=== PATIENT | female | born 1975 | race Caucasian/White ===

== ENCOUNTER 2018-06-27 14:29 | Emergency (ER) | payer MEDICAID ==
[~2018-06-27] VITALS: Ht 175.3 cm; Wt 67.0 kg
[~2018-06-27 14:29] MED LIST: CLIN-96 PO; CLIN150C8 PO; DIPH-423 PO; GENT5DRO4 EACHEYE; NO HOME MEDS
[2018-06-27 14:31] VITALS: BP 135/83
[2018-06-27] MEDS ORDERED: pilocarpine 2% ophthalmic drops 15ml LEFTEYE ONE (15:30)
== END 2018-06-27 16:00 | disposition home or self-care (01) ==
LOC: ER 14:29
DX: T15.82XA Foreign body in other and multiple parts of external eye, left eye, initial encounter (principal); J45.909 Unspecified asthma, uncomplicated; G89.29 Other chronic pain; F12.90 Cannabis use, unspecified, uncomplicated; F15.90 Other stimulant use, unspecified, uncomplicated; Z88.5 Allergy status to narcotic agent; Z88.8 Allergy status to other drugs, medicaments and biological substances; Z79.2 Long term (current) use of antibiotics; Z79.899 Other long term (current) drug therapy; Z56.0 Unemployment, unspecified; X58.XXXA Exposure to other specified factors, initial encounter; Y93.89 Activity, other specified; Y92.89 Other specified places as the place of occurrence of the external cause; Y99.8 Other external cause status
CPT/HCPCS: 65205; 99284

== ENCOUNTER 2018-08-21 19:34 | Emergency (ER) | payer MEDICAID ==
[~2018-08-21] VITALS: Ht 175.3 cm; Wt 77.2 kg
[2018-08-21 19:50] VITALS: BP 134/88
[2018-08-21] MEDS ORDERED: predniSONE 20 mg tablet PO ONE (22:00)
[2018-08-21] MEDS ORDERED: ipratropium/albuterol 3ml nebule NEB ONE (22:00)
[2018-08-21] MEDS ORDERED: AMOX-419 PO (22:13)
[2018-08-21] MEDS ORDERED: BENZ-38 PO (22:13)
[2018-08-21] MEDS ORDERED: PRED20TA PO (22:13)
[2018-08-21] MEDS ORDERED: ALBU6.7H INH (22:32)
== END 2018-08-21 22:39 | disposition home or self-care (01) ==
LOC: ER 19:35
DX: J20.9 Acute bronchitis, unspecified (principal); J45.909 Unspecified asthma, uncomplicated; G89.29 Other chronic pain; F12.90 Cannabis use, unspecified, uncomplicated; F15.90 Other stimulant use, unspecified, uncomplicated; Z87.891 Personal history of nicotine dependence; Z98.890 Other specified postprocedural states; Z88.5 Allergy status to narcotic agent; Z88.8 Allergy status to other drugs, medicaments and biological substances; Z79.2 Long term (current) use of antibiotics; Z79.899 Other long term (current) drug therapy
CPT/HCPCS: 71045; 94640; 94760; 99283; J7512

== ENCOUNTER 2018-12-11 07:31 | Emergency (ER) | payer MEDICAID ==
[~2018-12-11] VITALS: Ht 175.3 cm; Wt 65.0 kg
[~2018-12-11 07:31] MED LIST changes: +ALBU6.7H9 INH
[2018-12-11 08:49] LABS: BASOPHILS # (AUTO) 0.1 X10'3 (0-0.2); BASOPHILS % (AUTO) 1.2 % (0-1); EOSINOPHILS # (AUTO) 0.3 X10'3 (0-0.9); EOSINOPHILS % (AUTO) 4.5 % (0-6); HEMATOCRIT 42.9 % (35.0-45.0); HEMOGLOBIN 14.6 g/dl (12.0-16.0); LYMPHOCYTES # (AUTO) 1.3 X10'3 (1.1-4.8); LYMPHOCYTES % (AUTO) 21.9 % (21-51); MEAN CORPUSCULAR HEMOGLOBIN 30.1 PG (27.0-31.0); MEAN CORPUSCULAR HGB CONC 34.1 g/dL (33.0-36.5); MEAN CORPUSCULAR VOLUME 88.2 FL (78-98); MEAN PLATELET VOLUME 9.2 FL (7.4-10.4); MONOCYTES # (AUTO) 0.5 X10'3 (0-0.9); MONOCYTES % (AUTO) 8.9 % (2-12); NEUTROPHILS # (AUTO) 3.6 X10'3 (1.8-7.7); NEUTROPHILS % (AUTO) 63.5 % (42-75); PLATELET COUNT 156 X10'3 (140-440); RED BLOOD COUNT 4.87 X10'6 (4.20-5.60); RED CELL DISTRIBUTION WIDTH 12.4 % (11.5-14.5); WHITE BLOOD COUNT 5.7 X10'3 (4.5-11.0)
[2018-12-11 08:57] LABS: ALANINE AMINOTRANSFERASE 127 U/L (12-78); ALBUMIN 3.3 G/DL (3.4-5.0); ALBUMIN/GLOBULIN RATIO 0.7 (1.1-1.5); ALKALINE PHOSPHATASE 25 IU/L (46-116); ANION GAP 10 (8-16); ASPARTATE AMINO TRANSFERASE 74 U/L (10-37); BILIRUBIN,TOTAL 0.3 MG/DL (0.1-1.0); BLOOD UREA NITROGEN 10 MG/DL (7-18); BUN/CREATININE RATIO 10.9 (6.6-38.0); CALCIUM 8.7 MG/DL (8.5-10.1); CHLORIDE 107 MMOL/L (99-107); CREATININE 0.92 MG/DL (0.40-0.90); GLUCOSE 100 MG/DL (70-104); LIPASE 235 U/L (73-393); SODIUM 139 MMOL/L (135-145); TOTAL CARBON DIOXIDE 21.7 MMOL/L (24-32); TOTAL PROTEIN 7.8 G/DL (6.4-8.2); eGFR 67 ML/MIN
[2018-12-11 09:13] VITALS: BP 121/65
[2018-12-11 09:19] LABS: CLARITY,URINE SLIGHTLY CLOUDY (Clear); COLOR,URINE STRAW (Yellow); GLUCOSE, URINE NEGATIVE (Neg); KETONES,URINE NEGATIVE (Neg); LEUKOCYTE ESTERASE ,URINE TRACE (Neg); NITRITES, URINE NEGATIVE (Neg); OCCULT BLOOD,URINE NEGATIVE (Neg); PROTEIN,URINE NEGATIVE (Neg); UROBILINOGEN,URINE 0.2 E.U/dL (0.2-1.0)
[2018-12-11 09:20] LABS: URINE HCG NEGATIVE (NEG)
[2018-12-11 09:21] LABS: UA COLLECTION TYPE CLN CATCH MIDSTREAM
[2018-12-11 09:37] LABS: SQUAMOUS EPITHELIAL CELL,UR FEW /LPF (FEW)
[2018-12-11 09:38] LABS: MUCUS STRANDS FEW /LPF (Neg)
[2018-12-11 09:41] LABS: WBC,URINE 0-4 /HPF (0-4)
[2018-12-11 09:42] LABS: BACTERIA,URINE 1+ /HPF (Neg); CAL OXALATE CRYSTALS FEW /HPF (NEGATIVE); RBC,URINE 0-2 /HPF (0-2)
[2018-12-11 10:44] LABS: MONOTEST NEGATIVE (Neg)
== END 2018-12-11 10:37 | disposition home or self-care (01) ==
LOC: ER 07:31
DX: R10.12 Left upper quadrant pain (principal); J45.909 Unspecified asthma, uncomplicated; G89.29 Other chronic pain; M54.9 Dorsalgia, unspecified; F12.90 Cannabis use, unspecified, uncomplicated; F15.90 Other stimulant use, unspecified, uncomplicated; Z56.0 Unemployment, unspecified; Z88.6 Allergy status to analgesic agent; Z88.8 Allergy status to other drugs, medicaments and biological substances
CPT/HCPCS: 36415; 76700; 80053; 81001; 81025; 83690; 85025; 85610; 86308; 87088; 99284

== ENCOUNTER 2018-12-16 15:08 | Emergency (ER) | payer MEDICAID ==
[~2018-12-16] VITALS: Ht 175.3 cm; Wt 77.3 kg
[2018-12-16 15:49] LABS: BASOPHILS # (AUTO) 0.1 X10'3 (0-0.2); BASOPHILS % (AUTO) 0.9 % (0-1); EOSINOPHILS # (AUTO) 0.3 X10'3 (0-0.9); EOSINOPHILS % (AUTO) 3.8 % (0-6); HEMATOCRIT 42.9 % (35.0-45.0); HEMOGLOBIN 14.6 g/dl (12.0-16.0); LYMPHOCYTES # (AUTO) 1.6 X10'3 (1.1-4.8); LYMPHOCYTES % (AUTO) 21.8 % (21-51); MEAN CORPUSCULAR HEMOGLOBIN 30.2 PG (27.0-31.0); MEAN CORPUSCULAR HGB CONC 34.1 g/dL (33.0-36.5); MEAN CORPUSCULAR VOLUME 88.6 FL (78-98); MEAN PLATELET VOLUME 9.3 FL (7.4-10.4); MONOCYTES # (AUTO) 0.5 X10'3 (0-0.9); MONOCYTES % (AUTO) 7.4 % (2-12); NEUTROPHILS # (AUTO) 4.7 X10'3 (1.8-7.7); NEUTROPHILS % (AUTO) 66.1 % (42-75); PLATELET COUNT 178 X10'3 (140-440); RED BLOOD COUNT 4.85 X10'6 (4.20-5.60); RED CELL DISTRIBUTION WIDTH 12.8 % (11.5-14.5); WHITE BLOOD COUNT 7.1 X10'3 (4.5-11.0)
[2018-12-16 16:03] LABS: ALANINE AMINOTRANSFERASE 123 U/L (12-78); ALBUMIN 3.5 G/DL (3.4-5.0); ALBUMIN/GLOBULIN RATIO 0.7 (1.1-1.5); ALKALINE PHOSPHATASE 31 IU/L (46-116); ANION GAP 13 (8-16); ASPARTATE AMINO TRANSFERASE 64 U/L (10-37); BILIRUBIN,TOTAL 0.2 MG/DL (0.1-1.0); BLOOD UREA NITROGEN 10 MG/DL (7-18); BUN/CREATININE RATIO 11.6 (6.6-38.0); CALCIUM 8.7 MG/DL (8.5-10.1); CHLORIDE 105 MMOL/L (99-107); CREATININE 0.86 MG/DL (0.40-0.90); GLUCOSE 95 MG/DL (70-104); POTASSIUM 3.8 MMOL/L (3.5-5.1); SODIUM 139 MMOL/L (135-145); TOTAL CARBON DIOXIDE 21.1 MMOL/L (24-32); TOTAL PROTEIN 8.3 G/DL (6.4-8.2); eGFR 72 ML/MIN
[2018-12-16] MEDS ORDERED: ketorolac tromethamine 15mg/ml inj. IM ONE (16:05)
[2018-12-16] MEDS ORDERED: dicyclomine 10 MG capsule PO ONE (16:05)
[2018-12-16 16:44] LABS: LIPASE 197 U/L (73-393)
[2018-12-16 17:02] LABS: CLARITY,URINE SLIGHTLY CLOUDY (Clear); COLOR,URINE STRAW (Yellow); GLUCOSE, URINE NEGATIVE (Neg); KETONES,URINE NEGATIVE (Neg); LEUKOCYTE ESTERASE ,URINE NEGATIVE (Neg); NITRITES, URINE NEGATIVE (Neg); OCCULT BLOOD,URINE TRACE-INTACT (Neg); PH,URINE 6.5 (4.8-8.0); PROTEIN,URINE NEGATIVE (Neg); UROBILINOGEN,URINE 0.2 E.U/dL (0.2-1.0)
[2018-12-16 17:03] LABS: URINE HCG NEGATIVE (NEG)
[2018-12-16 17:06] LABS: UA COLLECTION TYPE CLN CATCH MIDSTREAM
[2018-12-16 17:10] LABS: RBC,URINE NONE SEEN /HPF (0-2); WBC,URINE 0-4 /HPF (0-4)
[2018-12-16 17:11] LABS: BACTERIA,URINE NONE SEEN /HPF (Neg); MUCUS STRANDS NONE SEEN /LPF (Neg); SQUAMOUS EPITHELIAL CELL,UR FEW /LPF (FEW)
[2018-12-16] MEDS ORDERED: DICY10CA88 PO (17:57)
[2018-12-16] MEDS ORDERED: FAMO-128 PO (17:57)
[2018-12-16 18:14] VITALS: BP 119/82
== END 2018-12-16 18:15 | disposition home or self-care (01) ==
LOC: ER 15:09
DX: R10.12 Left upper quadrant pain (principal); J45.909 Unspecified asthma, uncomplicated; G89.29 Other chronic pain; M54.9 Dorsalgia, unspecified; F12.90 Cannabis use, unspecified, uncomplicated; F15.90 Other stimulant use, unspecified, uncomplicated; Z88.6 Allergy status to analgesic agent; Z88.8 Allergy status to other drugs, medicaments and biological substances; Z87.891 Personal history of nicotine dependence; Z56.0 Unemployment, unspecified
CPT/HCPCS: 36415; 74176; 80053; 81001; 81025; 83690; 85025; 85610; 96372; 99284; J1885

== ENCOUNTER 2018-12-23 07:40 | Emergency (ER) | payer MEDICAID ==
[~2018-12-23] VITALS: Ht 175.3 cm; Wt 76.4 kg
[~2018-12-23 07:40] MED LIST changes: +CLIN-90 PO; -CLIN-96 PO; +DICY10CA88 PO; +FAMO-128 PO
[2018-12-23 08:58] LABS: ALANINE AMINOTRANSFERASE 163 U/L (12-78); ALBUMIN 3.7 G/DL (3.4-5.0); ALBUMIN/GLOBULIN RATIO 0.7 (1.1-1.5); ALKALINE PHOSPHATASE 29 IU/L (46-116); ANION GAP 11 (8-16); ASPARTATE AMINO TRANSFERASE 92 U/L (10-37); BILIRUBIN,TOTAL 0.4 MG/DL (0.1-1.0); BLOOD UREA NITROGEN 10 MG/DL (7-18); BUN/CREATININE RATIO 10.2 (6.6-38.0); CALCIUM 9.2 MG/DL (8.5-10.1); CHLORIDE 104 MMOL/L (99-107); CREATININE 0.98 MG/DL (0.40-0.90); GLUCOSE 82 MG/DL (70-104); LIPASE 163 U/L (73-393); POTASSIUM 3.6 MMOL/L (3.5-5.1); SODIUM 140 MMOL/L (135-145); TOTAL CARBON DIOXIDE 25.2 MMOL/L (24-32); TOTAL PROTEIN 9.1 G/DL (6.4-8.2); eGFR 62 ML/MIN
[2018-12-23 09:05] LABS: BASOPHILS % (AUTO) 0.6 % (0-1); EOSINOPHILS # (AUTO) 0.2 X10'3 (0-0.9); EOSINOPHILS % (AUTO) 3.6 % (0-6); HEMATOCRIT 45.9 % (35.0-45.0); HEMOGLOBIN 15.7 g/dl (12.0-16.0); LYMPHOCYTES # (AUTO) 1.1 X10'3 (1.1-4.8); LYMPHOCYTES % (AUTO) 21.1 % (21-51); MEAN CORPUSCULAR HEMOGLOBIN 30.2 PG (27.0-31.0); MEAN CORPUSCULAR HGB CONC 34.2 g/dL (33.0-36.5); MEAN CORPUSCULAR VOLUME 88.2 FL (78-98); MEAN PLATELET VOLUME 9.5 FL (7.4-10.4); MONOCYTES # (AUTO) 0.4 X10'3 (0-0.9); MONOCYTES % (AUTO) 8.2 % (2-12); NEUTROPHILS # (AUTO) 3.4 X10'3 (1.8-7.7); NEUTROPHILS % (AUTO) 66.5 % (42-75); PLATELET COUNT 140 X10'3 (140-440); RED CELL DISTRIBUTION WIDTH 12.4 % (11.5-14.5); WHITE BLOOD COUNT 5.1 X10'3 (4.5-11.0)
[2018-12-23 09:21] LABS: URINE HCG NEGATIVE (NEG)
[2018-12-23 09:24] LABS: CLARITY,URINE CLEAR (Clear); COLOR,URINE YELLOW (Yellow); GLUCOSE, URINE NEGATIVE (Neg); KETONES,URINE NEGATIVE (Neg); LEUKOCYTE ESTERASE ,URINE NEGATIVE (Neg); NITRITES, URINE NEGATIVE (Neg); OCCULT BLOOD,URINE TRACE-INTACT (Neg); PROTEIN,URINE NEGATIVE (Neg); UROBILINOGEN,URINE 0.2 E.U/dL (0.2-1.0)
[2018-12-23 09:26] LABS: UA COLLECTION TYPE CLN CATCH MIDSTREAM
[2018-12-23 09:31] LABS: SQUAMOUS EPITHELIAL CELL,UR FEW /LPF (FEW)
[2018-12-23 09:32] LABS: BACTERIA,URINE NONE SEEN /HPF (Neg); RBC,URINE 0-2 /HPF (0-2); WBC,URINE 0-4 /HPF (0-4)
[2018-12-23] MEDS ORDERED: normal saline 1000ML IV soln IVB ONE (09:35)
[2018-12-23] MEDS: diatr meglu/diatrizoate 30ml oral sol.-(3 dose) bottle PO SCH ×3 (09:58→11:38)
[2018-12-23] MEDS ORDERED: iohexol 300mg/ml 100ml inj. ONE (10:18)
--- NOTE | 2018-12-23 11:49 | NUR ---
LAST DOSE OF ORAL CONTREST GIVEN OUT TO CT
--- NOTE | 2018-12-23 11:58 | NUR ---
BACK FROM CT
[2018-12-23 13:07] VITALS: BP 125/75
== END 2018-12-23 13:10 | disposition home or self-care (01) ==
LOC: ER 07:40
DX: R10.12 Left upper quadrant pain (principal); R74.0 Nonspecific elevation of levels of transaminase and lactic acid dehydrogenase [LDH]; R16.1 Splenomegaly, not elsewhere classified; R10.11 Right upper quadrant pain; J45.909 Unspecified asthma, uncomplicated; F12.90 Cannabis use, unspecified, uncomplicated; F15.90 Other stimulant use, unspecified, uncomplicated; G89.29 Other chronic pain; Z86.19 Personal history of other infectious and parasitic diseases; Z98.890 Other specified postprocedural states; Z56.0 Unemployment, unspecified; Z88.5 Allergy status to narcotic agent; Z88.8 Allergy status to other drugs, medicaments and biological substances; Z79.899 Other long term (current) drug therapy
CPT/HCPCS: 36415; 74177; 80053; 81001; 81025; 83690; 85025; 99284; J7030; Q9963; Q9967

== ENCOUNTER 2019-07-04 15:47 | Emergency (ER) | payer MEDICAID ==
[~2019-07-04] VITALS: Ht 175.3 cm; Wt 79.0 kg
[~2019-07-04 15:47] MED LIST changes: -CLIN-90 PO; +CLIN-97 PO
[2019-07-04 15:56] VITALS: BP 138/87
[2019-07-04] MEDS ORDERED: PENI250T2 PO (16:35)
== END 2019-07-04 16:53 | disposition home or self-care (01) ==
LOC: ER 15:48
DX: R51 Headache (principal); K12.1 Other forms of stomatitis; R60.9 Edema, unspecified; J45.909 Unspecified asthma, uncomplicated; G89.29 Other chronic pain; F12.90 Cannabis use, unspecified, uncomplicated; F15.90 Other stimulant use, unspecified, uncomplicated; Z86.19 Personal history of other infectious and parasitic diseases; Z98.890 Other specified postprocedural states; Z56.0 Unemployment, unspecified; Z88.8 Allergy status to other drugs, medicaments and biological substances; Z79.2 Long term (current) use of antibiotics; Z79.899 Other long term (current) drug therapy
CPT/HCPCS: 99283

== ENCOUNTER 2021-08-10 12:57 | Emergency (ER) | payer MEDICAID ==
[~2021-08-10] VITALS: Ht 172.7 cm; Wt 90.9 kg
[2021-08-10 13:01] VITALS: BP 138/88
[2021-08-10 13:34] LABS: BASOPHILS # (AUTO) 0.1 X10'3 (0-0.2); BASOPHILS % (AUTO) 0.8 % (0-1); EOSINOPHILS # (AUTO) 0.2 X10'3 (0-0.9); EOSINOPHILS % (AUTO) 2.3 % (0-6); HEMATOCRIT 36.8 % (35.0-45.0); HEMOGLOBIN 12.2 g/dl (12.0-16.0); LYMPHOCYTES # (AUTO) 1.5 X10'3 (1.1-4.8); LYMPHOCYTES % (AUTO) 19.1 % (21-51); MEAN CORPUSCULAR HEMOGLOBIN 27.3 PG (27.0-31.0); MEAN CORPUSCULAR HGB CONC 33.2 g/dL (33.0-36.5); MEAN CORPUSCULAR VOLUME 82.2 FL (78-98); MEAN PLATELET VOLUME 8.7 FL (7.4-10.4); MONOCYTES # (AUTO) 0.6 X10'3 (0-0.9); MONOCYTES % (AUTO) 7.6 % (2-12); NEUTROPHILS # (AUTO) 5.4 X10'3 (1.8-7.7); NEUTROPHILS % (AUTO) 70.2 % (42-75); PLATELET COUNT 232 X10'3 (140-440); RED BLOOD COUNT 4.47 X10'6 (4.20-5.60); RED CELL DISTRIBUTION WIDTH 13.5 % (11.5-14.5); WHITE BLOOD COUNT 7.7 X10'3 (4.5-11.0)
[2021-08-10 13:35] LABS: CLARITY,URINE CLEAR (Clear); GLUCOSE, URINE NEGATIVE (Neg); KETONES,URINE NEGATIVE (Neg); LEUKOCYTE ESTERASE ,URINE NEGATIVE (Neg); NITRITES, URINE NEGATIVE (Neg); OCCULT BLOOD,URINE NEGATIVE (Neg); PROTEIN,URINE NEGATIVE (Neg); UROBILINOGEN,URINE 0.2 E.U/dL (0.2-1.0)
[2021-08-10 13:38] LABS: URINE HCG NEGATIVE (NEG)
[2021-08-10 13:49] LABS: ALANINE AMINOTRANSFERASE 9 U/L (12-78); ALBUMIN 3.7 G/DL (3.4-5.0); ALBUMIN/GLOBULIN RATIO 0.8 (1.1-1.5); ALKALINE PHOSPHATASE 24 IU/L (46-116); ANION GAP 10 (8-16); ASPARTATE AMINO TRANSFERASE 10 U/L (10-37); BILIRUBIN,TOTAL 0.2 MG/DL (0.1-1.0); BLOOD UREA NITROGEN 12 MG/DL (7-18); BUN/CREATININE RATIO 11.8 (6.6-38.0); CALCIUM 9.1 MG/DL (8.5-10.1); CHLORIDE 105 MMOL/L (99-107); CREATININE 1.02 MG/DL (0.40-0.90); GLUCOSE 91 MG/DL (70-104); LIPASE 116 U/L (73-393); POTASSIUM 4.1 MMOL/L (3.5-5.1); SODIUM 137 MMOL/L (135-145); TOTAL CARBON DIOXIDE 21.8 MMOL/L (24-32); TOTAL PROTEIN 8.1 G/DL (6.4-8.2); eGFR 59 ML/MIN
[2021-08-10 14:02] LABS: COLOR,URINE STRAW (Yellow); UA COLLECTION TYPE CLN CATCH MIDSTREAM
[2021-08-10] MEDS ORDERED: LIDOcaine Viscous 15ml cup MM PRN (14:20)
[2021-08-10] MEDS: mag hydrox/Alum hydrox/simeth 30ml oral suspension PO ONE ×2 (14:26→14:35)
== END 2021-08-10 15:02 | disposition home or self-care (01) ==
LOC: ER 12:58
DX: K59.00 Constipation, unspecified (principal); R10.10 Upper abdominal pain, unspecified; F12.10 Cannabis abuse, uncomplicated; F15.10 Other stimulant abuse, uncomplicated; M54.9 Dorsalgia, unspecified; J45.909 Unspecified asthma, uncomplicated; G89.29 Other chronic pain; Z88.8 Allergy status to other drugs, medicaments and biological substances; Z79.899 Other long term (current) drug therapy
CPT/HCPCS: 36415; 76700; 80053; 81003; 81025; 83690; 85025; 99284

== ENCOUNTER 2021-08-21 10:23 | Emergency (ER) | payer MEDICAID ==
[~2021-08-21] VITALS: Ht 172.7 cm; Wt 88.8 kg
[2021-08-21 10:49] VITALS: BP 138/88
[2021-08-21] MEDS ORDERED: BISA-155 PO (11:29)
[2021-08-21] MEDS ORDERED: NA P133E RC (11:29)
[2021-08-21] MEDS ORDERED: bisacodyl 5mg tablet.DR PO PRN (11:30)
[2021-08-21 11:44] LABS: CLARITY,URINE CLEAR (Clear); COLOR,URINE YELLOW (Yellow); GLUCOSE, URINE NEGATIVE (Neg); KETONES,URINE NEGATIVE (Neg); LEUKOCYTE ESTERASE ,URINE NEGATIVE (Neg); NITRITES, URINE NEGATIVE (Neg); OCCULT BLOOD,URINE NEGATIVE (Neg); PROTEIN,URINE NEGATIVE (Neg); UROBILINOGEN,URINE 0.2 E.U/dL (0.2-1.0)
[2021-08-21 11:48] LABS: UA COLLECTION TYPE CLN CATCH MIDSTREAM
[2021-08-21 11:59] LABS: ALANINE AMINOTRANSFERASE 12 U/L (12-78); ALBUMIN 3.7 G/DL (3.4-5.0); ALBUMIN/GLOBULIN RATIO 0.8 (1.1-1.5); ALKALINE PHOSPHATASE 24 IU/L (46-116); ANION GAP 8 (8-16); ASPARTATE AMINO TRANSFERASE 14 U/L (10-37); BILIRUBIN,TOTAL 0.3 MG/DL (0.1-1.0); BLOOD UREA NITROGEN 8 MG/DL (7-18); BUN/CREATININE RATIO 7.1 (6.6-38.0); CHLORIDE 104 MMOL/L (99-107); CREATININE 1.12 MG/DL (0.40-0.90); EOSINOPHILS # (AUTO) 0.1 X10'3 (0-0.9); GLUCOSE 101 MG/DL (70-104); LIPASE 102 U/L (73-393); POTASSIUM 4.1 MMOL/L (3.5-5.1); SODIUM 136 MMOL/L (135-145); TOTAL PROTEIN 8.3 G/DL (6.4-8.2); WHITE BLOOD COUNT 6.1 X10'3 (4.5-11.0); eGFR 53 ML/MIN
[2021-08-21 12:01] LABS: BASOPHILS % (AUTO) 0.6 % (0-1); EOSINOPHILS % (AUTO) 2.2 % (0-6); HEMATOCRIT 39.8 % (35.0-45.0); LYMPHOCYTES # (AUTO) 1.2 X10'3 (1.1-4.8); LYMPHOCYTES % (AUTO) 19.8 % (21-51); MEAN CORPUSCULAR HGB CONC 32.8 g/dL (33.0-36.5); MEAN CORPUSCULAR VOLUME 82.3 FL (78-98); MEAN PLATELET VOLUME 8.9 FL (7.4-10.4); MONOCYTES # (AUTO) 0.5 X10'3 (0-0.9); MONOCYTES % (AUTO) 7.8 % (2-12); NEUTROPHILS # (AUTO) 4.2 X10'3 (1.8-7.7); NEUTROPHILS % (AUTO) 69.6 % (42-75); PLATELET COUNT 207 X10'3 (140-440); RED BLOOD COUNT 4.83 X10'6 (4.20-5.60); RED CELL DISTRIBUTION WIDTH 13.6 % (11.5-14.5)
== END 2021-08-21 13:15 | disposition home or self-care (01) ==
LOC: ER 10:23
DX: K59.00 Constipation, unspecified (principal); J45.909 Unspecified asthma, uncomplicated; F12.10 Cannabis abuse, uncomplicated; F15.10 Other stimulant abuse, uncomplicated; Z56.0 Unemployment, unspecified; Z88.8 Allergy status to other drugs, medicaments and biological substances; Z79.899 Other long term (current) drug therapy; M54.9 Dorsalgia, unspecified; G89.29 Other chronic pain
CPT/HCPCS: 36415; 74018; 80053; 81003; 83690; 85025; 99284

== ENCOUNTER 2021-08-23 16:08 | Emergency (ER) | payer MEDICAID ==
[~2021-08-23] VITALS: Ht 172.7 cm; Wt 100.0 kg
[~2021-08-23 16:08] MED LIST changes: +BISA-155 PO; +NA P133E RC
[2021-08-23 18:01] LABS: CLARITY,URINE CLEAR (Clear); COLOR,URINE YELLOW (Yellow); GLUCOSE, URINE NEGATIVE (Neg); KETONES,URINE NEGATIVE (Neg); LEUKOCYTE ESTERASE ,URINE NEGATIVE (Neg); NITRITES, URINE NEGATIVE (Neg); OCCULT BLOOD,URINE NEGATIVE (Neg); PROTEIN,URINE NEGATIVE (Neg); UROBILINOGEN,URINE 0.2 E.U/dL (0.2-1.0)
[2021-08-23 18:02] LABS: URINE HCG NEGATIVE (NEG)
[2021-08-23 18:08] LABS: UA COLLECTION TYPE NON-SPECIFIED
[2021-08-23 18:15] LABS: ALANINE AMINOTRANSFERASE 10 U/L (12-78); ALBUMIN 3.5 G/DL (3.4-5.0); ALBUMIN/GLOBULIN RATIO 0.8 (1.1-1.5); ALKALINE PHOSPHATASE 24 IU/L (46-116); ANION GAP 9 (8-16); ASPARTATE AMINO TRANSFERASE 7 U/L (10-37); BILIRUBIN,TOTAL 0.1 MG/DL (0.1-1.0); BLOOD UREA NITROGEN 10 MG/DL (7-18); BUN/CREATININE RATIO 9.5 (6.6-38.0); CALCIUM 9.1 MG/DL (8.5-10.1); CHLORIDE 103 MMOL/L (99-107); CREATININE 1.05 MG/DL (0.40-0.90); GLUCOSE 96 MG/DL (70-104); LIPASE 101 U/L (73-393); MAGNESIUM 1.9 MG/DL (1.5-2.4); POTASSIUM 3.8 MMOL/L (3.5-5.1); SODIUM 136 MMOL/L (135-145); TOTAL CARBON DIOXIDE 24.2 MMOL/L (24-32); TOTAL PROTEIN 7.9 G/DL (6.4-8.2); eGFR 57 ML/MIN
[2021-08-23 18:23] LABS: BASOPHILS % (AUTO) 0.4 % (0-1); EOSINOPHILS # (AUTO) 0.2 X10'3 (0-0.9); EOSINOPHILS % (AUTO) 1.7 % (0-6); HEMATOCRIT 39.7 % (35.0-45.0); LYMPHOCYTES # (AUTO) 1.7 X10'3 (1.1-4.8); LYMPHOCYTES % (AUTO) 18.6 % (21-51); MEAN CORPUSCULAR HEMOGLOBIN 27.2 PG (27.0-31.0); MEAN CORPUSCULAR HGB CONC 32.9 g/dL (33.0-36.5); MEAN CORPUSCULAR VOLUME 82.7 FL (78-98); MEAN PLATELET VOLUME 8.9 FL (7.4-10.4); MONOCYTES # (AUTO) 0.6 X10'3 (0-0.9); MONOCYTES % (AUTO) 6.8 % (2-12); NEUTROPHILS # (AUTO) 6.6 X10'3 (1.8-7.7); NEUTROPHILS % (AUTO) 72.5 % (42-75); PLATELET COUNT 206 X10'3 (140-440); RED CELL DISTRIBUTION WIDTH 13.7 % (11.5-14.5); WHITE BLOOD COUNT 9.2 X10'3 (4.5-11.0)
[2021-08-23 18:48] VITALS: BP 123/87
[2021-08-23] MEDS ORDERED: normal saline 1000ml 1,000 ML IV ONE (19:35)
[2021-08-23] MEDS ORDERED: PEG 3350/Na sulf,bicarb,Cl/KCl oral sol 4 liter bottle PO STA (20:13)
[2021-08-23] MEDS ORDERED: metoclopramide 5 mg/ml inj IV ONE (20:15)
[2021-08-23] MEDS ORDERED: ondansetron/PF 4mg/2ml inj IV ONE (20:50)
[2021-08-23] MEDS ORDERED: CALC625T62 PO (22:17)
== END 2021-08-23 23:15 | disposition home or self-care (01) ==
LOC: ER 16:09
DX: K59.00 Constipation, unspecified (principal); R11.10 Vomiting, unspecified; J45.909 Unspecified asthma, uncomplicated; G89.29 Other chronic pain; Z86.19 Personal history of other infectious and parasitic diseases; Z98.890 Other specified postprocedural states; Z56.0 Unemployment, unspecified; Z72.89 Other problems related to lifestyle; Z88.8 Allergy status to other drugs, medicaments and biological substances; Z79.899 Other long term (current) drug therapy
CPT/HCPCS: 36415; 74176; 80053; 81003; 81025; 83690; 83735; 85025; 96361; 96374; 96375; 99284; J2405; J2765; J7030

== ENCOUNTER 2021-08-29 11:22 | Emergency (ER) | payer MEDICAID ==
[~2021-08-29] VITALS: Ht 172.7 cm; Wt 90.9 kg
[~2021-08-29 11:22] MED LIST changes: +CALC625T62 PO
[2021-08-29 12:14] VITALS: BP 131/77
[2021-08-29] MEDS ORDERED: GOLYS PO (12:48)
== END 2021-08-29 12:59 | disposition home or self-care (01) ==
LOC: ER 11:22
DX: K59.00 Constipation, unspecified (principal); G89.29 Other chronic pain; M54.9 Dorsalgia, unspecified; J45.909 Unspecified asthma, uncomplicated; Z88.8 Allergy status to other drugs, medicaments and biological substances; Z79.899 Other long term (current) drug therapy
CPT/HCPCS: 99283

== ENCOUNTER 2021-09-25 10:31 | Emergency (ER) | payer MEDICAID ==
[~2021-09-25] VITALS: Ht 172.7 cm; Wt 90.9 kg
[~2021-09-25 10:31] MED LIST changes: +GOLYS PO
[2021-09-25 10:42] VITALS: BP 134/70
[2021-09-25] MEDS ORDERED: ondansetron 4mg rapidly disintigrating tab PO ONE (15:15)
== END 2021-09-25 15:50 | disposition left against medical advice (07) ==
LOC: ER 10:31
DX: K59.00 Constipation, unspecified (principal); Z53.21 Procedure and treatment not carried out due to patient leaving prior to being seen by health care provider

== ENCOUNTER → 2021-10-14 | Day surgery (SDC) | payer MEDICAID ==
[2021-10-07 15:48] LABS: BASOPHILS % (AUTO) 0.6 % (0-1); EOSINOPHILS # (AUTO) 0.2 X10'3 (0-0.9); EOSINOPHILS % (AUTO) 2.3 % (0-6); LYMPHOCYTES # (AUTO) 1.4 X10'3 (1.1-4.8); MEAN CORPUSCULAR HGB CONC 33.5 g/dL (33.0-36.5); MEAN CORPUSCULAR VOLUME 83.6 FL (78-98); MEAN PLATELET VOLUME 8.9 FL (7.4-10.4); MONOCYTES # (AUTO) 0.4 X10'3 (0-0.9); MONOCYTES % (AUTO) 5.5 % (2-12); NEUTROPHILS # (AUTO) 5.9 X10'3 (1.8-7.7); NEUTROPHILS % (AUTO) 73.6 % (42-75); PRE OP HEMOGLOBIN 12.7 g/dL (12.0-16.0); PRE OP PLATELET COUNT 203 X10'3 (140-440); RED BLOOD COUNT 4.54 X10'6 (4.20-5.60); RED CELL DISTRIBUTION WIDTH 13.9 % (11.5-14.5)
[2021-10-07 16:01] LABS: ALBUMIN 3.6 G/DL (3.4-5.0); ALBUMIN/GLOBULIN RATIO 0.8 (1.1-1.5); ALKALINE PHOSPHATASE 27 IU/L (46-116); BLOOD UREA NITROGEN 9 MG/DL (7-18); BUN/CREATININE RATIO 8.4 (6.6-38.0); CALCIUM 8.9 MG/DL (8.5-10.1); CHLORIDE 106 MMOL/L (99-107); CREATININE 1.07 MG/DL (0.40-0.90); PRE OP ALT 17 U/L (30-65); PRE OP ANION GAP 9 (8-16); PRE OP AST 14 U/L (10-37); PRE OP BILIRUB, TOTAL 0.1 MG/DL (0.0-1.0); PRE OP GLUCOSE 96 MG/DL (70-104); PRE OP POTASSIUM 3.8 MMOL/L (3.4-5.1); PRE OP SODIUM 137 MMOL/L (135-145); TOTAL CARBON DIOXIDE 22.3 MMOL/L (24-32); TOTAL PROTEIN 8.1 G/DL (6.4-8.2); eGFR 55 ML/MIN
[~2021-10-14] VITALS: Ht 172.7 cm; Wt 81.2 kg
[~2021-10-14] MED LIST changes: -ALBU6.7H9 INH; +ARIP5TAB14 PO; -BISA-155 PO; +BUPIVAcaine/PF 2.5 mg/ml (0.25%) 30ml vial ONE; +BUPR100T13 PO; -CALC625T62 PO; -CLIN-97 PO; -CLIN150C8 PO; -DICY10CA88 PO; -DIPH-423 PO; -FAMO-128 PO; -GENT5DRO4 EACHEYE; -GOLYS PO; +LIDOcaine 0.5% (5mg/ml) 50ml vial ONE; +LORA10TA7 PO; -NA P133E RC; -NO HOME MEDS; +OMEP20CA16 PO; +ceFAZolin inj. 2,000 MG in dextrose 5%-water 100 ML IV ONE; +famotidine 20mg tablet PO ONE; +fentaNYL/PF 50MCG/1 ML 2ML syringe IV PRN; +hydrALAZINE 20mg/ml inj. IV PRN; +labetalol 20mg/4ml (5mg/ml) syringe IV PRN; +morphine 2 MG/ML inj. syringe IV PRN; +morphine 4 MG/ML inj SYRINge IV PRN; +ondansetron/PF 4mg/2ml inj IV PRN; +ringers solution, lacted 1,000 ML IV SCH; +ringers solution, lacted 500 ML IV SCH
[2021-10-14 07:45] VITALS: BP 124/90
[2021-10-14 10:47] VITALS: BP 117/74
--- NOTE | 2021-10-14 10:47 | NUR ---
Received from OR via [facility], accompanied by Anesthesiologist and report given by TAD Anesthesiologist. PATIENT WAKING UP, DENIES PAIN, V/S WNL, 20G TO RUE, LEFT FINGER DRESSING C/D/I. ICE AND ELEVATED LUE. Addendum: 10/14/21 at 1057 by Tino Patten RN Amended: Links added.
[2021-10-14 10:50] VITALS: BP 112/73
[2021-10-14 11:00] VITALS: BP 132/79
[2021-10-14 11:10] VITALS: BP 119/81
[2021-10-14 11:20] VITALS: BP 133/84
--- NOTE | 2021-10-14 11:27 | NUR ---
ALL DISCHARGE CRITERIA HAS BEEN MET. VSS, PAIN AT A TOLERABLE LEVEL, ABLE TO SAFELY AMBULATE AND TRANSFER SELF. IV TAKEN OUT WITHOUT ANY COMPLICATIONS. ALL DISCHARGE INSTRUCTIONS COVERED WITH PATIENT AND ALL QUESTIONS ANSWERED. PATIENT TAKEN OUT VIA WHEELCHAIR TO PERSONAL VEHICLE WHERE FAMILY DROVE PATIENT HOME. Addendum: 10/14/21 at 1130 by Tino Patten RN Amended: Links added.
== END | disposition home or self-care (01) ==
LOC: PAS 07:22
PROVIDERS: ATTEND Orthopaedic Surgery Hand Surgery
DX: S68.113A Complete traumatic metacarpophalangeal amputation of left middle finger, initial encounter (principal); K21.9 Gastro-esophageal reflux disease without esophagitis; G80.8 Other cerebral palsy; F20.89 Other schizophrenia; X58.XXXA Exposure to other specified factors, initial encounter; Y93.89 Activity, other specified; Y92.89 Other specified places as the place of occurrence of the external cause; Y99.8 Other external cause status; Z79.899 Other long term (current) drug therapy; Z98.890 Other specified postprocedural states; Z87.891 Personal history of nicotine dependence; Z88.8 Allergy status to other drugs, medicaments and biological substances
CPT/HCPCS: 26951; 36415; 80053; 82948; 85025; J0690; J3490; J7030; J7060; J7120; Z7506; Z7512; A4618; A6449; A7000

== ENCOUNTER 2023-04-02 13:58 | Emergency (ER) | payer MEDICAID ==
[~2023-04-02] VITALS: Ht 172.7 cm; Wt 91.1 kg
[~2023-04-02 13:58] MED LIST changes: -BUPIVAcaine/PF 2.5 mg/ml (0.25%) 30ml vial ONE; -LIDOcaine 0.5% (5mg/ml) 50ml vial ONE; -ceFAZolin inj. 2,000 MG in dextrose 5%-water 100 ML IV ONE; -famotidine 20mg tablet PO ONE; -fentaNYL/PF 50MCG/1 ML 2ML syringe IV PRN; -hydrALAZINE 20mg/ml inj. IV PRN; -labetalol 20mg/4ml (5mg/ml) syringe IV PRN; -morphine 2 MG/ML inj. syringe IV PRN; -morphine 4 MG/ML inj SYRINge IV PRN; -ondansetron/PF 4mg/2ml inj IV PRN; -ringers solution, lacted 1,000 ML IV SCH; -ringers solution, lacted 500 ML IV SCH
[2023-04-02 17:32] VITALS: BP 131/95; PULSE 87; RESP 18; TEMP 98.3; O2SAT 100
[2023-04-02] MEDS ORDERED: bacitracin 15gm ointment TP ONE (18:25)
[2023-04-02] MEDS ORDERED: diphenhydrAMINE 50 mg/ml inj IM ONE (18:25)
[2023-04-02] MEDS ORDERED: HYDR-3686 PO (18:29)
[2023-04-02] MEDS ORDERED: BACI1PAC7 TOP (18:29)
== END 2023-04-02 19:34 | disposition home or self-care (01) ==
LOC: ER 13:59
DX: S61.202A Unspecified open wound of right middle finger without damage to nail, initial encounter (principal); L23.7 Allergic contact dermatitis due to plants, except food; G89.29 Other chronic pain; Z56.0 Unemployment, unspecified; Z88.8 Allergy status to other drugs, medicaments and biological substances; Z79.2 Long term (current) use of antibiotics; Z79.899 Other long term (current) drug therapy; X58.XXXA Exposure to other specified factors, initial encounter; Y93.89 Activity, other specified; Y92.89 Other specified places as the place of occurrence of the external cause; Y99.8 Other external cause status; J45.909 Unspecified asthma, uncomplicated
CPT/HCPCS: 96372; 99283; J1200

== ENCOUNTER 2023-07-05 16:55 | Emergency (ER) | payer MEDICAID ==
[~2023-07-05] VITALS: Ht 172.7 cm; Wt 91.4 kg
[2023-07-05 17:09] VITALS: TEMP 98.8
[2023-07-05] MEDS: ondansetron 4mg rapidly disintigrating tab PO ONE (17:15)
[2023-07-05 18:30] LABS: BASOPHILS % (AUTO) 0.4 % (0-1); EOSINOPHILS # (AUTO) 0.1 X10'3 (0-0.9); EOSINOPHILS % (AUTO) 1.5 % (0-6); HEMATOCRIT 36.8 % (35.0-45.0); HEMOGLOBIN 12.6 g/dl (12.0-16.0); LYMPHOCYTES # (AUTO) 1.4 X10'3 (1.1-4.8); LYMPHOCYTES % (AUTO) 19.6 % (21-51); MEAN CORPUSCULAR HEMOGLOBIN 28.9 PG (27.0-31.0); MEAN CORPUSCULAR HGB CONC 34.3 g/dL (33.0-36.5); MEAN CORPUSCULAR VOLUME 84.1 FL (78-98); MEAN PLATELET VOLUME 8.4 FL (7.4-10.4); MONOCYTES # (AUTO) 0.4 X10'3 (0-0.9); MONOCYTES % (AUTO) 6.1 % (2-12); NEUTROPHILS # (AUTO) 5.2 X10'3 (1.8-7.7); NEUTROPHILS % (AUTO) 72.4 % (42-75); PLATELET COUNT 214 X10'3 (140-440); RED BLOOD COUNT 4.37 X10'6 (4.20-5.60); RED CELL DISTRIBUTION WIDTH 13.4 % (11.5-14.5); WHITE BLOOD COUNT 7.2 X10'3 (4.5-11.0)
[2023-07-05 18:59] LABS: ALANINE AMINOTRANSFERASE 16 U/L (12-78); ALBUMIN 3.6 G/DL (3.4-5.0); ALBUMIN/GLOBULIN RATIO 0.8 (1.1-1.5); ALKALINE PHOSPHATASE 20 IU/L (46-116); ANION GAP 10 (8-16); ASPARTATE AMINO TRANSFERASE 15 U/L (10-37); BILIRUBIN,TOTAL 0.3 MG/DL (0.1-1.0); BLOOD UREA NITROGEN 9 MG/DL (7-18); CALCIUM 8.8 MG/DL (8.5-10.1); CHLORIDE 100 MMOL/L (99-107); GLUCOSE 102 MG/DL (70-104); LIPASE 39 U/L (16-77); POTASSIUM 3.7 MMOL/L (3.5-5.1); SODIUM 134 MMOL/L (135-145); TOTAL CARBON DIOXIDE 24.3 MMOL/L (24-32); TOTAL PROTEIN 8.3 G/DL (6.4-8.2); eCRCL 70 ML/MIN; eGFR 59 ML/MIN
[2023-07-05 19:56] VITALS: BP 132/91; PULSE 82; O2SAT 96
[2023-07-05] MEDS ORDERED: FAMO-129 PO (19:58)
[2023-07-05] MEDS ORDERED: OMEP40CA21 PO (19:58)
[2023-07-05] MEDS ORDERED: MAG-54 PO (20:00)
[2023-07-05] MEDS ORDERED: OXYC-658 PO (20:00)
[2023-07-05] MEDS ORDERED: SUCR1TAB34 PO (20:00)
[2023-07-05] MEDS ORDERED: ONDA4TAB12 PO (20:01)
[2023-07-05 20:02] LABS: BILIRUBIN,URINE NEGATIVE (Neg); CLARITY,URINE CLEAR (Clear); COLOR,URINE STRAW (Yellow); GLUCOSE, URINE NEGATIVE (Neg); KETONES,URINE NEGATIVE (Neg); LEUKOCYTE ESTERASE ,URINE NEGATIVE (Neg); NITRITES, URINE NEGATIVE (Neg); OCCULT BLOOD,URINE NEGATIVE (Neg); PROTEIN,URINE NEGATIVE (Neg); UROBILINOGEN,URINE 0.2 E.U/dL (0.2-1.0)
[2023-07-05 20:04] LABS: UA COLLECTION TYPE CLN CATCH MIDSTREAM; URINE HCG NEGATIVE (NEG)
[2023-07-05] MEDS: mag hydrox/Alum hydrox/simeth 30ml oral suspension PO ONE (20:05)
[2023-07-05] MEDS: famotidine/PF 10 mg/ml inj IV ONE (20:05)
[2023-07-05] MEDS: pantoprazole 40 MG vial IV STA (20:05)
[2023-07-05] MEDS: morphine 2 MG/ML inj. syringe IV STA (20:06)
[2023-07-05] MEDS: sucralfate 1 gm tablet PO ONE (20:06)
[2023-07-05 20:22] VITALS: RESP 16
[2023-07-05] MEDS: morphine 2 MG/ML inj. syringe IM STA (20:22)
[2023-07-05] MEDS: pantoprazole 40mg Tablet.DR PO STA (20:43)
[2023-07-05] MEDS: famotidine 20mg tablet PO ONE (20:43)
[2023-07-06] MEDS ORDERED: pantoprazole 40mg Tablet.DR PO SCH (07:30)
== END 2023-07-05 20:49 | disposition home or self-care (01) ==
LOC: ER 16:56
DX: K29.00 Acute gastritis without bleeding (principal); R11.2 Nausea with vomiting, unspecified; K21.9 Gastro-esophageal reflux disease without esophagitis; J45.909 Unspecified asthma, uncomplicated; F10.90 Alcohol use, unspecified, uncomplicated; Z56.0 Unemployment, unspecified; Z88.8 Allergy status to other drugs, medicaments and biological substances; Z79.899 Other long term (current) drug therapy; Z79.2 Long term (current) use of antibiotics
CPT/HCPCS: 36415; 71045; 76700; 80053; 81003; 81025; 83690; 85025; 96372; 99285; J2270; C9113; J3490

== ENCOUNTER 2023-08-24 14:10 | Emergency (ER) | payer MEDICAID ==
[~2023-08-24] VITALS: Ht 172.7 cm; Wt 90.9 kg
[~2023-08-24 14:10] MED LIST changes: +ARIP5TAB12 PO; -ARIP5TAB14 PO; +FAMO-129 PO; +MAG-54 PO; +ONDA4TAB12 PO; +SUCR1TAB34 PO
[2023-08-24] MEDS ORDERED: ketorolac trometh. 30mg/ml inj. IM ONE (16:15)
[2023-08-24] MEDS: HYDROcodone/acetaminophen 5mg/325mg tablet PO ONE (16:24)
[2023-08-24] MEDS: ondansetron 4mg rapidly disintigrating tab PO ONE (16:25)
[2023-08-24] MEDS: ketorolac tromethamine 15mg/ml inj. IM ONE (16:26)
[2023-08-24 16:39] VITALS: BP 140/82; PULSE 98; RESP 17; TEMP 97.8; O2SAT 98
== END 2023-08-24 16:41 | disposition home or self-care (01) ==
LOC: ER 14:11
DX: S82.62XA Displaced fracture of lateral malleolus of left fibula, initial encounter for closed fracture (principal); J45.909 Unspecified asthma, uncomplicated; K21.9 Gastro-esophageal reflux disease without esophagitis; G89.29 Other chronic pain; M54.9 Dorsalgia, unspecified; Z56.0 Unemployment, unspecified; Z88.8 Allergy status to other drugs, medicaments and biological substances; Z79.899 Other long term (current) drug therapy; X50.1XXA Overexertion from prolonged static or awkward postures, initial encounter; Y93.89 Activity, other specified; Y92.89 Other specified places as the place of occurrence of the external cause; Y99.8 Other external cause status
CPT/HCPCS: 73610; 96372; 99284; J1885

== ENCOUNTER 2023-09-07 20:56 | Emergency (ER) | payer MEDICAID ==
[~2023-09-07] VITALS: Ht 172.7 cm; Wt 90.9 kg
[2023-09-07 21:04] VITALS: BP 144/94; PULSE 97; RESP 18; TEMP 98.3; O2SAT 99
[2023-09-07 21:25] LABS: BASOPHILS # (AUTO) 0.1 X10'3 (0-0.2); BASOPHILS % (AUTO) 0.8 % (0-1); EOSINOPHILS # (AUTO) 0.2 X10'3 (0-0.9); EOSINOPHILS % (AUTO) 2.5 % (0-6); HEMATOCRIT 37.8 % (35.0-45.0); HEMOGLOBIN 12.5 g/dl (12.0-16.0); LYMPHOCYTES # (AUTO) 1.9 X10'3 (1.1-4.8); LYMPHOCYTES % (AUTO) 21.4 % (21-51); MEAN CORPUSCULAR HEMOGLOBIN 27.7 PG (27.0-31.0); MEAN CORPUSCULAR HGB CONC 33.1 g/dL (33.0-36.5); MEAN CORPUSCULAR VOLUME 83.6 FL (78-98); MEAN PLATELET VOLUME 8.4 FL (7.4-10.4); MONOCYTES # (AUTO) 0.5 X10'3 (0-0.9); MONOCYTES % (AUTO) 5.2 % (2-12); NEUTROPHILS # (AUTO) 6.3 X10'3 (1.8-7.7); NEUTROPHILS % (AUTO) 70.1 % (42-75); PLATELET COUNT 213 X10'3 (140-440); RED BLOOD COUNT 4.53 X10'6 (4.20-5.60); RED CELL DISTRIBUTION WIDTH 13.2 % (11.5-14.5)
[2023-09-07 21:35] LABS: ALANINE AMINOTRANSFERASE 22 U/L (12-78); ALBUMIN 3.5 G/DL (3.4-5.0); ALBUMIN/GLOBULIN RATIO 0.8 (1.1-1.5); ALKALINE PHOSPHATASE 26 IU/L (46-116); ANION GAP 10 (8-16); ASPARTATE AMINO TRANSFERASE 15 U/L (10-37); BILIRUBIN,TOTAL 0.3 MG/DL (0.1-1.0); BLOOD UREA NITROGEN 12 MG/DL (7-18); BUN/CREATININE RATIO 11.1 (10.0-20.0); CHLORIDE 102 MMOL/L (99-107); CREATININE 1.08 MG/DL (0.40-0.90); GLUCOSE 109 MG/DL (70-104); POTASSIUM 3.4 MMOL/L (3.5-5.1); SODIUM 136 MMOL/L (135-145); TOTAL CARBON DIOXIDE 23.6 MMOL/L (24-32); TOTAL PROTEIN 8.1 G/DL (6.4-8.2); eCRCL 64 ML/MIN; eGFR 54 ML/MIN
[2023-09-07 21:42] LABS: PRO BRAIN NATRIURETIC PEPTIDE 54 PG/ML (0-125)
== END 2023-09-08 02:24 | disposition left against medical advice (07) ==
LOC: ER 20:56
DX: R00.2 Palpitations (principal); R06.02 Shortness of breath; R42 Dizziness and giddiness; R07.89 Other chest pain; Z53.21 Procedure and treatment not carried out due to patient leaving prior to being seen by health care provider
CPT/HCPCS: 36415; 71045; 80053; 83880; 84484; 85025; 93005

== ENCOUNTER 2024-04-02 13:45 | Emergency (ER) | payer MEDICAID ==
[~2024-04-02] VITALS: Ht 172.7 cm; Wt 88.6 kg
[~2024-04-02 13:45] MED LIST changes: +ONDA-243 PO; -ONDA4TAB12 PO
[2024-04-02] MEDS: acetaminophen 325mg tablet PO ONE (15:17)
[2024-04-03 01:44] VITALS: BP 140/86; PULSE 90; RESP 17; TEMP 97.7; O2SAT 100
== END 2024-04-02 15:29 | disposition home or self-care (01) ==
LOC: ER 13:46
DX: H61.23 Impacted cerumen, bilateral (principal); H92.03 Otalgia, bilateral; J45.909 Unspecified asthma, uncomplicated; K21.9 Gastro-esophageal reflux disease without esophagitis; G89.29 Other chronic pain; Z88.8 Allergy status to other drugs, medicaments and biological substances; Z79.899 Other long term (current) drug therapy
CPT/HCPCS: 99282

== ENCOUNTER 2024-07-10 16:27 | Emergency (ER) | payer MEDICAID ==
[~2024-07-10] VITALS: Ht 172.7 cm; Wt 88.6 kg
[2024-07-10 16:32] VITALS: BP 157/98; PULSE 126; RESP 18; O2SAT 98
[2024-07-10 19:04] VITALS: TEMP 97.5
== END 2024-07-10 19:07 | disposition home or self-care (01) ==
LOC: ER 16:27
DX: R07.9 Chest pain, unspecified (principal); M54.2 Cervicalgia; R35.0 Frequency of micturition; J45.909 Unspecified asthma, uncomplicated; G89.29 Other chronic pain; M54.9 Dorsalgia, unspecified; K21.9 Gastro-esophageal reflux disease without esophagitis; Z56.0 Unemployment, unspecified; Z98.890 Other specified postprocedural states; Z88.8 Allergy status to other drugs, medicaments and biological substances; Z79.899 Other long term (current) drug therapy; V43.62XA Car passenger injured in collision with other type car in traffic accident, initial encounter; Y93.89 Activity, other specified; Y92.89 Other specified places as the place of occurrence of the external cause; Y99.8 Other external cause status
CPT/HCPCS: 51798; 99284

== ENCOUNTER 2024-07-27 11:18 | Emergency (ER) | payer MEDICAID ==
[~2024-07-27] VITALS: Ht 172.7 cm; Wt 88.6 kg
[2024-07-27 11:26] VITALS: BP 140/65; PULSE 86; RESP 18; O2SAT 98
--- NOTE | 2024-07-27 11:49 | Physician Documentation ---
History of Present Illness ~ Chief Complaint: Laceration Stated Complaint: EYE LAC Time Seen by MD: 11:48 Primary Medical Doctor: [facility] This 48-year-old female presents to the emergency department reporting that she was with a dog park when she fell and was scratched to the right face and above the right eye by a dog that was attacking her dog. No loss of consciousness head strike or other concerns. Tetanus Within 5 Years: No Medication Reconciliation Allergies: Coded Allergies: promethazine (Verified Allergy, Unknown, BREAK OUT, HIVES, 07/10/24) Scheduled Aripiprazole* (Abilify*), 10 MG PO HS, (Reported) Bupropion Hcl (Bupropion Hcl), 3 TAB PO HS, (Reported) Famotidine (Pepcid), 1 TAB PO Q12H Loratadine (Loratadine), 1 TAB PO HS, (Reported) Mag Hydrox/Al Hydrox/Simeth (Maalox Advanced Max-Str Susp), 20 ML PO Q6H ONDANSETRON ODT 4mg tablet (Ondansetron Odt), 4 MG PO Q6H Omeprazole (Omeprazole), 1 CAP PO HS, (Reported) Sucralfate (Carafate), 1 TAB PO Q6H Past Medical History Past Medical History: Asthma, GERD, Hepatitis C, Chronic Back Pain, *INFECTIOUS DZ*, *PSYCH* Past Surgical History: orthopedic surgeries Other Past Family History: NONCONTRIBUTORY Alcohol Use: Sober Drug Use: none Lives with: Family Lives In: Home Occupation: unemployed Review of Systems ROS As stated above in the HPI, otherwise all systems are reviewed and negative. Physical Exam Vital Signs: Temperature: 98.6, Source: Oral, Heart Rate: 86, Respiratory Rate: 18, BP: 140/65, Pulse Oximetry: 98, Weight: 88.640 Physical Exam General: Alert, no apparent distress. HEENT: PERRL, EOMI, no injection, moist mucous membranes. Superficial laceration to the right eyelid, but no laceration needing sutures once the dried blood in the eyelid was cleaned away. This is a very superficial and more of a scratch. Neck: Full range of motion. Respiratory: Lungs clear, no respiratory distress. Chest: No accessory muscle use. Cardiovascular: Regular rate and rhythm, no murmurs. Gastrointestinal: Soft, nontender, nondistended. Bowels sounds present. Extremities: Normal range of motion, no deformity. Neurologic: Oriented x4. Psychiatric: Normal mood and affect. Skin: Normal color, warm and dry. No edema, no ecchymosis. Progress Results/Orders Results/Orders Orders - MESFIN ALDRIDGE NP Dressing Orders (07/27/24 11:55) Laceration/I&D Tray Set Up (07/27/24 11:55) Wound Care Orders (07/27/24 11:55) Completed Orders - MESFIN ALDRIDGE NP Tetanus/Pertuss/Diph Acell/Pf (Boostrix (07/27/24 11:55) Medications Received in ER Medications (Trade) Dose Ordered Sig/Bety Route PRN Reason Start Time Stop Time Status Last Admin Dose Admin (Boostrix vaccine syringe) 0.5 ml ONCE ONCE IMVAC 07/27/24 11:55 07/27/24 11:57 DC 07/27/24 12:09 0.5 ML Vital Signs 07/27/24 11:26 Temp 98.6 Pulse 86 Resp 18 B/P (MAP) 140/65 Pulse Ox 98 Medical Decision Making Differential Dx:Considerations: Include: Abrasion, Avulsion, Contusion, Laceration, Fracture, Hematoma, Neurovascular injury, Retained foreign body Departure Time of Disposition: 12:41 Disposition: 01 HOME / SELF CARE / HOMELESS Impression: Primary Impression: Laceration Condition: Stable Discharge Instructions: Laceration Care, Adult, [id number] Additional Instructions: Nothing needing suture or skin glue. Keep wound clean and dry and apply a thin layer of antibiotic ointment daily. See Primary care for followup or return if worse. Referrals: NO PRIMARY CARE PROVIDER (PCP) Education Educated: Patient, Family Educated regarding: diagnosis, treatment, prognosis, need for follow up Signature Scribe Signature: No scribe Attestation: The note accurately reflects work and decisions made by me.Mesfin Deluna NP 07/27/24 12:50 MESFIN ALDRIDGE NP July 27, 2024 11:49
[2024-07-27] MEDS: TETanus/Pertussis (Acell)/Diphther VAC/PF (Tdap-Adult) 0.5ml syringe IMVAC ONE (12:09)
[2024-07-27 12:50] VITALS: TEMP 98.6
== END 2024-07-27 12:52 | disposition home or self-care (01) ==
LOC: ER 11:19
DX: S01.111A Laceration without foreign body of right eyelid and periocular area, initial encounter (principal); J45.909 Unspecified asthma, uncomplicated; K21.9 Gastro-esophageal reflux disease without esophagitis; Z88.8 Allergy status to other drugs, medicaments and biological substances; Z79.899 Other long term (current) drug therapy; Z98.890 Other specified postprocedural states; Z56.0 Unemployment, unspecified; W54.0XXA Bitten by dog, initial encounter; Y93.89 Activity, other specified; Y92.89 Other specified places as the place of occurrence of the external cause; Y99.8 Other external cause status
CPT/HCPCS: 90471; 90715; 99283

== ENCOUNTER 2025-01-29 13:55 | Emergency (ER) | payer MEDICAID ==
[~2025-01-29] VITALS: Ht 172.7 cm; Wt 90.9 kg
[2025-01-29 14:12] VITALS: TEMP 99.7
--- NOTE | 2025-01-29 14:35 | Physician Documentation ---
History of Present Illness ~ Chief Complaint: Itching Stated Complaint: HEAD IS ITCHY Time Seen by MD: 14:37 Primary Medical Doctor: [facility] Patient is a very pleasant 49-year-old female that presents to emergency department for evaluation of itchy scalp all over times a couple of days. Patient denies seeing any lice or bugs in her hair at this time. Patient reports that she has not been around anyone with lice that she is aware of but he is concerned because her head itches all over. Medication Reconciliation Allergies: Coded Allergies: promethazine (Verified Allergy, Unknown, BREAK OUT, HIVES, 01/29/25) Scheduled Aripiprazole* (Abilify*), 10 MG PO HS, (Reported) Bupropion Hcl (Bupropion Hcl), 3 TAB PO HS, (Reported) Famotidine (Pepcid), 1 TAB PO Q12H Loratadine (Loratadine), 1 TAB PO HS, (Reported) Mag Hydrox/Al Hydrox/Simeth (Maalox Advanced Max-Str Susp), 20 ML PO Q6H ONDANSETRON ODT 4mg tablet (Ondansetron Odt), 4 MG PO Q6H Omeprazole (Omeprazole), 1 CAP PO HS, (Reported) Sucralfate (Carafate), 1 TAB PO Q6H Past Medical History Past Medical History: Asthma, GERD, Hepatitis C, Chronic Back Pain, *INFECTIOUS DZ*, *PSYCH* Past Surgical History: orthopedic surgeries Other Past Family History: NONCONTRIBUTORY Alcohol Use: Sober Drug Use: none Lives with: Family Lives In: Home Occupation: unemployed Review of Systems ROS As stated above in the HPI, otherwise all systems are reviewed and negative. Physical Exam Vital Signs: Temperature: 99.7, Source: Oral, Heart Rate: 83, Respiratory Rate: 18, BP: 127/92, Pulse Oximetry: 98, Weight: 90.910 Oxygen Flow Rate: 0 Physical Exam VITALS: Reviewed and as above. GENERAL: Alert, no apparent distress. HEENT: Normocephalic, atraumatic, PERRL, EOMI, dry mucosa, no erythema, hair and scalp evaluated thoroughly no lice noted on examination. RESPIRATORY: Lungs clear, normal breath sounds, no respiratory distress. CHEST: No accessory muscle use, no retractions CV: Regular rate, rhythm, no edema, no murmur, No: JVD GI: Soft, non-tender, bowels sounds present, no rebound, guarding, or rigidity BACK: No CVA tenderness, or swelling MUSCULOSKELETAL No deformities, no edema SKIN: Warm and dry, no rash NEURO: Oriented x4, No motor or sensory deficit PSYCH: Normal mood and affect, no agitation Progress Results/Orders Results/Orders Vital Signs 01/29/25 14:12 Temp 99.7 Pulse 83 Resp 18 B/P (MAP) 127/92 Pulse Ox 98 O2 Flow Rate 0 Medical Decision Making Additional information obtaine: other Findings 49-year-old female presented to the ED for evaluation of possible head lice. No live lice or nits were identified on scalp examination. Patient reports concern for dandruff and denies any known exposure to lice. Assessment: No evidence of active pediculosis capitis. Patient is asymptomatic except for concern about scalp findings. No pruritus or secondary skin changes noted. Medical Decision-Making: Per [place] [employer] guidelines, treatment for head lice should be reserved for patients with confirmed or highly suspected infestation. Diagnosis requires visualization of live lice or viable nits close to the scalp. In this case, neither was found. Patient was counseled that head lice are benign, not a health hazard, and not a sign of poor hygiene. If patient remains concerned about possible exposure, OTC permethrin 1% shampoo is recommended as first-line therapy; prescription can be provided if unable to obtain OTC. No environmental interventions or extensive cleaning are necessary in the absence of confirmed infestation. Patient advised to follow up with PCP or return to ED if symptoms worsen or recur. Disposition: Discharged in stable condition. Reassured regarding findings. Provided education on lice diagnosis and management options. No prescription provided at this time. Follow-up: PCP as needed. Return to ED for worsening symptoms or new findings. Differential Dx:Considerations: Include: Abscess, AIDS/HIV, Anthrax (cutaneous), Atopic dermatitis, Candidiasis, Contact dermatitis, Drug reaction, Erythema multiforme, Erysipelas, Gangrene, Herpes zoster, Herpes simplex, Hidradenitis suppurativa, Impetigo, Intertrigo, Lymes disease, Molluscum contagiosum, Osteomyelitis, Pediculosis, Pityriasis rosea, Psoriaisis, RMSF, Rosacea, Scabies, Scarlet fever, Tinea, Urticaria, Varicella, Viral exanthema, Other Departure Disposition: 01 HOME / SELF CARE / HOMELESS Impression: Primary Impression: Itching Condition: Stable Discharge Instructions: Itching Additional Instructions: You were seen in the emergency department today for concerns about head lice. No lice or nits (lice eggs) were found on your scalp during the exam. You mentioned you are worried about possible dandruff, which is a common cause of scalp flaking and itching. What you should know: Head lice are not dangerous and do not spread disease. They are not a sign of poor hygiene. Treatment for lice is only needed if live lice or nits close to the scalp are found. Dandruff is not caused by lice and can be managed with regular use of anti- dandruff shampoos. If you are still concerned about possible lice or have a new exposure: You may use an [id number] permethrin 1% shampoo, which is safe and effective for treating lice. Follow the instructions on the package carefully. Usually, a second application is needed about one week after the first. If you cannot get permethrin shampoo, a prescription can be provided. No special cleaning of your home or belongings is needed unless lice are found. If you ever have a confirmed case, only items that touched your head in the previous two days should be washed in hot water or sealed in a bag for two weeks. Follow-up: You may follow up with your primary care provider if you have ongoing concerns or symptoms. Return to the emergency department if you develop itching, see lice or nits, or if your symptoms get worse. If you have any questions or your symptoms change, please reach out for further evaluation. Referrals: NO PRIMARY CARE PROVIDER (PCP) Education Educated: Patient Educated regarding: diagnosis, treatment, need for follow up Signature Scribe Signature: A Attestation: Scribed for Louis Luis by RAJESH Leung . 01/29/25 15:02 LOUIS LUIS Jan 29, 2025 14:35
[2025-01-29 15:14] VITALS: BP 127/94; PULSE 76; RESP 17; O2SAT 99
== END 2025-01-29 15:16 | disposition home or self-care (01) ==
LOC: ER 13:56
DX: L29.9 Pruritus, unspecified (principal); J45.909 Unspecified asthma, uncomplicated; K21.9 Gastro-esophageal reflux disease without esophagitis; F10.90 Alcohol use, unspecified, uncomplicated; Z88.8 Allergy status to other drugs, medicaments and biological substances; Y90.9 Presence of alcohol in blood, level not specified
CPT/HCPCS: 99282